=== PATIENT | male | born 1985 | race Native Hawaiian/Other Pacific Islander ===

== ENCOUNTER 2020-03-19 10:10 | Outpatient (CLI) | payer OTHER ==
[~2020-03-19] VITALS: Ht 160 cm; Wt 88.0 kg
[2020-03-19 11:11] LABS: PLATELET COUNT 170 K/uL (142-355)
[2020-03-19 11:18] LABS: POTASSIUM 4.3 mmol/L (3.6-5.2)
== END 2020-03-19 21:12 | disposition home or self-care (01) ==
LOC: INF 10:10
PROVIDERS: ATTEND Family Medicine
DX: U07.1 COVID-19 (principal)
CPT/HCPCS: 36591; 80053; 85027; 96365